=== PATIENT | male | born 1980 | race Caucasian/White ===

== ENCOUNTER 2018-05-27 08:39 | Emergency (ER) | payer OTHER ==
[2018-05-27] MEDS ORDERED: ALBUTEROL NEB 2.5 MG/3 ML INH STA (08:58)
--- NOTE | 2018-05-27 09:01 | ED Physician Documentation ---
PD HPI URI - Stated complaint Stated Complaint: CONGESTION/COUGH - Chief complaint Chief Complaint: Resp - History obtained from History obtained from: Patient, Family - History of Present Illness Timing - onset: How many weeks ago (3-4) Timing duration: Weeks (3-4) Timing details: Gradual onset Pain level max: 7 Pain level now: 5 Associated symptoms: Fever, Chills, Nasal congestion, Rhinorrhea, Dry cough, Dyspnea (wheezing) Contributing factors: Sick contact Improves by: MDI/nebulizer (used an inhaler last night) Worsened by: Activity Recently seen: Not recently seen - Additional information Additional information: type 1 diabetic, PCP is at Review of Systems Ten Systems: 10 systems reviewed and negative Constitutional: reports: Fever, Chills GI: denies: Vomiting, Diarrhea Skin: denies: Rash Musculoskeletal: denies: Neck pain, Back pain Neurologic: denies: Headache PD PAST MEDICAL HISTORY - Past Medical History Past Medical History: Yes Endocrine/Autoimmune: Type 1 diabetes - Present Medications Home Medications: Ambulatory Orders Medication Instructions Recorded Confirmed Albuterol Sulf [Ventolin Hfa 1 - 2 puffs INH Q4HR PRN #1 inhaler 05/27/18 Inhaler] Benzonatate [Tessalon Perle] 100 - 200 mg PO TID PRN #30 capsule 05/27/18 Doxycycline Hyclate 100 mg PO BID #20 capsule 05/27/18 Insulin Glargine [Lantus Solostar] 0 unit 05/27/18 05/27/18 Insulin Lispro [Humalog] 10 unit SUBQ ONCE 05/27/18 05/27/18 - Allergies Allergies/Adverse Reactions: Allergies Allergy/AdvReac Type Severity Reaction Status Date / Time Penicillins Allergy Anaphylaxis Verified 05/27/18 08:45 - Social History Does the pt smoke?: Yes Smoking Status: Current every day smoker Does the pt drink ETOH?: No Substance Use and Type: Marijuana PD ED PE NORMAL - Vitals Vital signs reviewed: Yes - General General: Alert and oriented X 3, No acute distress - HEENT HEENT: PERRL, Ears normal, Moist mucous membranes, Pharynx benign - Neck Neck: Supple, no meningeal sign - Cardiac Cardiac: RRR, Strong equal pulses - Respiratory Respiratory: No respiratory distress, Other (wheezing and rhonchi B) - Abdomen Abdomen: Soft, Non tender, Non distended - Derm Derm: Warm and dry, No rash - Extremities Extremities: No edema - Neuro Neuro: Alert and oriented X 3 - Psych Psych: Normal mood, Normal affect Results - Vitals Vitals: Vital Signs - 24 hr 05/27/18 05/27/18 05/27/18 08:44 09:06 10:00 Temperature 38.7 C H Heart Rate 100 94 115 H Respiratory 20 18 16 Rate Blood Pressure 147/91 H 137/95 H O2 Saturation 97 97 Oxygen O2 Source Room air - Rads (name of study) cxr Radiology: Prelim report reviewed, EMP read contemporaneously, See rad report (Left lingular patchy infiltrate or atelectasis ) PD MEDICAL DECISION MAKING - ED course Complexity details: reviewed results, re-evaluated patient, considered differential, d/w patient, d/w family ED course: 37-year-old male with what appears to be pneumonia. He is well-appearing, nontoxic. No respiratory distress. Also feels better after breathing treatment. Will place on antibiotics and an albuterol inhaler for home. Patient counseled regarding signs and symptoms for which I believe and urgent re- evaluation would be necessary. Patient with good understanding of and agreement to plan and is comfortable going home at this time This document was made in part using voice recognition software. While efforts are made to proofread this document, sound alike and grammatical errors may occur. Patient states that his blood sugars have been running 150-200 at home and was checked just prior to arrival Departure - Departure Disposition: 01 Home, Self Care Clinical Impression: Pneumonia Qualifiers: Pneumonia type: due to unspecified organism Laterality: left Lung location: unspecified part of lung Qualified Code(s): J18.9 - Pneumonia, unspecified organism Condition: Good Instructions: ED Pneumonia Adult Follow-Up: your,doctor in 1 week [Other] Prescriptions: Albuterol Sulf [Ventolin Hfa Inhaler] 1 - 2 puffs INH Q4HR PRN #1 inhaler PRN Reason: Shortness Of Air/Wheezing Benzonatate [Tessalon Perle] 100 - 200 mg PO TID PRN #30 capsule PRN Reason: Cough Doxycycline Hyclate 100 mg PO BID #20 capsule Comments: Use the antibiotics until gone. Use the inhaler as needed. Return if you worsen. This should improve with antibiotics. Discharge Date/Time: 05/27/18 10:01
--- NOTE | 2018-05-27 09:42 | XRAY Report ---
Reason: cough, fever Procedure Date: 05/27/2018 Accession Number: [id number] / [id number] Procedure: XR - Chest 2 View X-Ray CPT Code: 62572 FULL RESULT: EXAM: CHEST RADIOGRAPHY EXAM DATE: 05/27/2018 09:32 AM. CLINICAL HISTORY: Cough, fever. COMPARISON: None. TECHNIQUE: 2 views. FINDINGS: Lungs/Pleura: Patchy area of infiltrate or atelectasis in the lingula. No pleural effusion. No pneumothorax. Normal volumes. Mediastinum: Heart and mediastinal contours are unremarkable. Other: None. IMPRESSION: Left lingular patchy infiltrate or atelectasis RADIA
[2018-05-27 10:01] VITALS: BP 137/95
== END 2018-05-27 10:01 | disposition home or self-care (01) ==
LOC: ED 08:39
DX: J18.9 Pneumonia, unspecified organism (principal); E11.9 Type 2 diabetes mellitus without complications; F17.200 Nicotine dependence, unspecified, uncomplicated
CPT/HCPCS: 71046; 94640; 94664; 99283; 99284

== ENCOUNTER 2020-12-09 15:05 | Outpatient (CLI) | payer MEDICAID | END 2020-12-09 15:06 | disposition home or self-care (01) | LOC: COV 15:05 | PROVIDERS: ATTEND Family Medicine | DX: U07.1 COVID-19 (principal) ==

== ENCOUNTER 2023-03-30 09:36 | Emergency (ER) | payer MEDICAID ==
[2023-03-30 09:50] VITALS: BP 151/84; O2SAT 100
--- NOTE | 2023-03-30 10:05 | XRAY Report ---
PROCEDURE: Chest 1V INDICATIONS: cough with shortness of breath TECHNIQUE: One view of the chest was acquired. COMPARISON: 319 FINDINGS: Surgical changes and devices: None. Lungs and pleura: No pleural effusions or pneumothorax. Lungs are clear. Mediastinum: Mediastinal contours appear normal. Heart size is normal. Bones and chest wall: No suspicious bony lesions. Overlying soft tissues appear unremarkable. IMPRESSION: Single view chest study within normal limits, without focal infiltrates. Reviewed by: Raji Patricio MD on 03/30/2023 9:03 AM [facility] Approved by: Raji Patricio MD on 03/30/2023 9:03 AM [facility] Station ID: [id number]
[2023-03-30 10:55] LABS: B. PARAPERTUSSIS- RESP PCR PAN NOT DETECTED; B. PERTUSSIS- RESP PCR PANEL NOT DETECTED; C. PNEUMONIAE- RESP PCR PANEL NOT DETECTED; CORONAVIRUS 229E-RESP PCR NOT DETECTED; CORONAVIRUS HKU1-RESP PCR NOT DETECTED; CORONAVIRUS NL63-RESP PCR NOT DETECTED; CORONAVIRUS OC43-RESP PCR NOT DETECTED; HUMAN METAPNEUMOVIRUS NOT DETECTED; INFLUENZA A- RESP PCR PANEL NOT DETECTED; INFLUENZA B - RESP PCR PANEL NOT DETECTED; M. PNEUMONIAE- RESP PCR PANEL NOT DETECTED; PARAINFLUENZA VIRUS 1 NOT DETECTED; PARAINFLUENZA VIRUS 2 NOT DETECTED; PARAINFLUENZA VIRUS 3 NOT DETECTED; PARAINFLUENZA VIRUS 4 NOT DETECTED; RHINOVIRUS/ENTEROVIRUS NOT DETECTED; RSV- RESP PCR PANEL DETECTED; SARS-CoV-2 -RESP PCR PANEL NOT DETECTED
--- NOTE | 2023-03-30 13:55 | ED Physician Documentation ---
PD HPI URI - Stated complaint Stated Complaint: SOA,WEAKNESS,N/V - Chief complaint Chief Complaint: Resp - History obtained from History obtained from: Patient - History of Present Illness Timing - onset: How many weeks ago (2) Timing details: Abrupt onset, Still present (was improving after a week, with still coughing, but now worse again 2-3 days.) Associated symptoms: Chills, Productive cough, Dyspnea, Other (nausea) Similar symptoms before: Has not had sx before Review of Systems Constitutional: reports: Myalgias. denies: Fever Nose: reports: Congestion Throat: denies: Sore throat Cardiac: denies: Chest pain / pressure, Palpitations, Pedal edema Respiratory: reports: Dyspnea, Cough, Wheezing GI: reports: Nausea. denies: Vomiting, Diarrhea PD PAST MEDICAL HISTORY - Past Medical History Past Medical History: Yes Endocrine/Autoimmune: Type 1 diabetes - Past Surgical History Past Surgical History: No - Present Medications Home Medications: Ambulatory Orders Medication Instructions Recorded Confirmed Albuterol Sulf [Ventolin Hfa 1 - 2 puffs INH Q4HR PRN #1 inhaler 05/27/18 Inhaler] Benzonatate [Tessalon Perle] 100 - 200 mg PO TID PRN #30 capsule 05/27/18 Doxycycline Hyclate 100 mg PO BID #20 capsule 05/27/18 Insulin Glargine [Lantus Solostar] 0 unit 05/27/18 05/27/18 Insulin Lispro [Humalog] 10 unit SUBQ ONCE 05/27/18 05/27/18 Albuterol Sulf [Ventolin Hfa 1 - 2 puffs INH Q4HR PRN #1 each 03/30/23 Inhaler] Doxycycline Hyclate 100 mg PO BID 7 Days #14 cap 03/30/23 Ondansetron Odt [Zofran] 4 mg TL Q6H PRN #10 tablet 03/30/23 dexAMETHasone [Decadron] 4 mg PO DAILY #5 tablet 03/30/23 - Allergies Allergies/Adverse Reactions: Allergies Allergy/AdvReac Type Severity Reaction Status Date / Time Penicillins Allergy Anaphylaxis Verified 03/30/23 09:46 - Social History Does the pt smoke?: Yes Smoking Status: Current every day smoker Does the pt drink ETOH?: No Does the pt have substance abuse?: Yes Substance Use and Type: Marijuana - Immunizations Immunizations are current?: Yes PD ED PE NORMAL - Vitals Vital signs reviewed: Yes - General General: Alert and oriented X 3, Well developed/nourished - HEENT HEENT: Ears normal, Pharynx benign - Neck Neck: Supple, no meningeal sign, No adenopathy - Cardiac Cardiac: No murmur. No: RRR (tachycardic in triage, improves. Sats okay. regular rhythm.) - Respiratory Respiratory: No respiratory distress. No: Clear bilaterally (congested sounds hilar with coughing and diffuse wheezing on expiration. ) - Extremities Extremities: No edema, No calf tenderness / cord Results - Vitals Vitals: Oxygen O2 Source Room air - Labs Labs: Laboratory Tests 03/30/23 09:51 Nasal Adenovirus (PCR) NOT DETECTED Nasal B. parapertussis DNA (PCR) NOT DETECTED Nasal Coronavir 229E PCR NOT DETECTED Nasal Coronavir HKU1 PCR NOT DETECTED Nasal Coronavir NL63 PCR NOT DETECTED Nasal Coronavir OC43 PCR NOT DETECTED Nasal Enterovir/Rhinovir PCR NOT DETECTED Nasal Influenza B PCR NOT DETECTED Nasal Influenza A PCR NOT DETECTED Nasal Parainfluen 1 PCR NOT DETECTED Nasal Parainfluen 2 PCR NOT DETECTED Nasal Parainfluen 3 PCR NOT DETECTED Nasal Parainfluen 4 PCR NOT DETECTED Nasal RSV (PCR) DETECTED A Nasal B.pertussis DNA PCR NOT DETECTED Nasal C.pneumoniae (PCR) NOT DETECTED [place] Human Metapneumo PCR NOT DETECTED Nasal M.pneumoniae (PCR) NOT DETECTED Nasal SARS-CoV-2 (PCR) NOT DETECTED - Rads (name of study) hest xray Relevant Findings:: Prelim report reviewed, EMP independent interpretation of test (no infiltrates) PD Medical Decision Making - ED course Complexity details: reviewed results (positive for RSV but has had phasic symptoms with URI and cough for 2 weeks and now increased cough/ dyspnea/wheezing. COuld be RSV is new, but could also be secondary bronchtiits atop RSV. As such, inhaler steroids abx may have utility.), considered differential (has had cough and URI symptoms for 2 weeks with increased symptoms and dyspnea the past 2-3 days. ), d/w patient Departure - Departure Disposition: 01 Home, Self Care Clinical Impression: RSV bronchiolitis, Bronchitis, acute Condition: Stable Record reviewed to determine appropriate education?: Yes Prescriptions: Albuterol Sulf [Ventolin Hfa Inhaler] 1 - 2 puffs INH Q4HR PRN #1 each PRN Reason: Shortness Of Air/Wheezing dexAMETHasone [Decadron] 4 mg PO DAILY #5 tablet Doxycycline Hyclate 100 mg PO BID 7 Days #14 cap Ondansetron Odt [Zofran] 4 mg TL Q6H PRN #10 tablet PRN Reason: Nausea / Vomiting Comments: Your chest x-ray is clear without any signs of pneumonia. However your symptoms do sound like some element of bronchitis. Your viral panel test is positive for RSV but unclear whether that is a new current infection or the 1 that is been bothering you for the couple of weeks. Given the duration and now worsening of your symptoms, consideration would be a secondary bacterial bronchitis on top of the initial viral. Will treat this with a combination of inhaler as well as a steroid anti-inflammatory and an antibiotic. In addition I wrote for some ondansetron to use for nausea. I sent your prescription to [facility] in [place]. We did give a first dose of some medicines here. I would anticipate improvement over the next several days and hopefully decreasing of your symptoms enough in the meantime with the above treatments. Return to the ER if needed. Forms: PCP List Discharge Date/Time: 03/30/23 15:14
[2023-03-30] MEDS ORDERED: dexAMETHasone 4 MG TABLET PO STA (14:13)
[2023-03-30] MEDS ORDERED: DOXYCYCLINE 100 MG TABLET PO STA (14:13)
[2023-03-30] MEDS ORDERED: ONDANSETRON ODT 4 MG TABLET TL STA (14:13)
[2023-03-30] MEDS ORDERED: ALBUTEROL 1 PUFF INH STA (14:13)
== END 2023-03-30 15:14 | disposition home or self-care (01) ==
LOC: ED 09:36
DX: J21.0 Acute bronchiolitis due to respiratory syncytial virus (principal); E10.9 Type 1 diabetes mellitus without complications; Z79.4 Long term (current) use of insulin; F17.200 Nicotine dependence, unspecified, uncomplicated; Z11.52 Encounter for screening for COVID-19
CPT/HCPCS: 71045; 87633; 94640; 99284; A9270; J8540; Q0162; 87635

== ENCOUNTER 2023-09-02 12:24 | Outpatient (CLI) | payer MEDICAID | END 2023-09-02 23:59 | disposition EMS.NT | LOC: EMS 12:24 | DX: R11.2 Nausea with vomiting, unspecified (principal); E10.65 Type 1 diabetes mellitus with hyperglycemia ==

== ENCOUNTER 2023-09-02 23:28 | Outpatient (CLI) | payer MEDICAID | END 2023-09-02 23:59 | disposition critical access hospital (66) | LOC: EMS 23:28 | DX: R11.2 Nausea with vomiting, unspecified (principal); E10.65 Type 1 diabetes mellitus with hyperglycemia | CPT/HCPCS: A0425; A0427; A0999 ==

== ENCOUNTER 2023-09-02 23:54 | Emergency (ER) | payer MEDICAID ==
--- NOTE | 2023-09-02 23:54 | ED Physician Documentation ---
PD HPI NVD - Stated complaint Stated Complaint: NAUSEA/VOMITING - History obtained from History obtained from: Patient - Additonal information Additional information: BIBA. HPI from patient. Patient complains of burning epigastric pain, nausea and vomiting, x 2 days. There was no inciting event. Symptoms are exacerbated with any p.o. intake, and he says he is no longer able to tolerate even liquids since earlier this evening due to exacerbation of the pain, nausea and vomiting. He says that the last 2 or 3 episodes of vomitus have some bright red blood in the vomitus although he did not notice any clots. Denies history of similar symptoms. He says he does not drink on a heavy nor regular basis. He notes that the epigastric pain has been increasingly radiating up midline of his chest with a distinct burning sensation. Patient is diabetic; EMS reports fingerstick blood sugar 321. Review of Systems Constitutional: denies: Fever, Chills, Sweats Cardiac: reports: Reviewed and negative Respiratory: reports: Reviewed and negative GI: reports: Abdominal Pain, Nausea, Vomiting, Hematemesis. denies: Abdominal Swelling, Constipation, Diarrhea, Bloody / black stool : denies: Dysuria, Frequency Musculoskeletal: denies: Back pain PD PAST MEDICAL HISTORY - Past Medical History Past Medical History: Yes Endocrine/Autoimmune: Type 1 diabetes GI: GERD - Present Medications Home Medications: Ambulatory Orders Medication Instructions Recorded Confirmed Albuterol Sulf [Ventolin Hfa 1 - 2 puffs INH Q4HR PRN #1 inhaler 05/27/18 Inhaler] Benzonatate [Tessalon Perle] 100 - 200 mg PO TID PRN #30 capsule 05/27/18 Doxycycline Hyclate 100 mg PO BID #20 capsule 05/27/18 Insulin Glargine [Lantus Solostar] 0 unit 05/27/18 05/27/18 Insulin Lispro [Humalog] 10 unit SUBQ ONCE 05/27/18 05/27/18 Albuterol Sulf [Ventolin Hfa 1 - 2 puffs INH Q4HR PRN #1 each 03/30/23 Inhaler] Doxycycline Hyclate 100 mg PO BID 7 Days #14 cap 03/30/23 Ondansetron Odt [Zofran] 4 mg TL Q6H PRN #10 tablet 03/30/23 dexAMETHasone [Decadron] 4 mg PO DAILY #5 tablet 03/30/23 Lidocaine Viscous 2% [Xylocaine 5 ml PO Q4H PRN #100 ml 09/03/23 Viscous 2%] Ondansetron Odt [Zofran Odt] 4 mg TL Q6H PRN #14 tablet 09/03/23 - Allergies Allergies/Adverse Reactions: Allergies Allergy/AdvReac Type Severity Reaction Status Date / Time Penicillins Allergy Anaphylaxis Verified 09/03/23 00:15 PD ED PE NORMAL - Vitals Vital signs reviewed: Yes - General General: Alert and oriented X 3, Well developed/nourished, Other (appears uncomfortable, mildly diaphoretic) - HEENT HEENT: Other (tacky/pasty mucous membranes) - Neck Neck: Supple, no meningeal sign - Cardiac Cardiac: RRR, No murmur - Respiratory Respiratory: No respiratory distress, Clear bilaterally - Abdomen Abdomen: Normal bowel sounds, Soft, Non tender, Non distended - Back Back: No CVA TTP - Derm Derm: Normal color, Warm and dry Results - Vitals Vitals: Vital Signs - 24 hr 09/02/23 09/03/23 09/03/23 23:59 02:05 05:00 Temperature 36.8 C Heart Rate 60 79 79 Respiratory 18 18 16 Rate Blood Pressure 116/77 134/74 H 108/62 O2 Saturation 100 94 96 09/03/23 05:45 Temperature Heart Rate 76 Respiratory 18 Rate Blood Pressure 118/66 O2 Saturation 97 Oxygen O2 Source Room air - Labs Labs: Laboratory Tests 09/03/23 09/03/23 09/03/23 00:13 00:13 00:24 WBC 12.4 H RBC 5.35 Hgb 15.8 Hct 46.0 MCV 86.0 MCH 29.5 MCHC 34.3 RDW 13.3 Plt Count 252 MPV 10.4 Neut # (Auto) 10.8 H Lymph # (Auto) 0.6 L [place] # (Auto) 1.0 Eos # (Auto) 0.0 Baso # (Auto) 0.0 Absolute Nucleated RBC 0.00 Nucleated RBC % 0.0 Sodium 136 Potassium 3.7 Chloride 91 L Carbon Dioxide 34 H Anion Gap 11.0 BUN 46 H Creatinine 1.4 H Estimated GFR (MDRD) 56 L Glucose 266 H Calcium 9.3 Total Bilirubin 0.6 AST 12 ALT 19 Alkaline Phosphatase 66 Total Protein 6.3 L Albumin 4.5 Globulin 1.8 L Albumin/Globulin Ratio 2.5 H Lipase < 10 L Urine Color YELLOW Urine Clarity CLEAR Urine pH 6.5 Ur Specific [place] 1.020 Urine Protein 100 H Urine Glucose (UA) >=1000 H Urine Ketones 40 H Urine Occult Blood TRACE-INTA Urine Nitrite NEGATIVE Urine Bilirubin SMALL H Urine Urobilinogen 0.2 (NORMAL) Ur Leukocyte Esterase NEGATIVE Urine RBC 0-5 Urine WBC 0-3 Ur Squamous Epith Cells RARE Squamous Urine Bacteria None Seen Urine Mucus Few Strands Ur Microscopic Review INDICATED Urine Culture Comments NOT INDICATED Serum Ketones NEGATIVE PD Medical Decision Making - ED course Complexity details: reviewed results, re-evaluated patient, considered differential, d/w patient ED course: Patient's prescription medications include atorvastatin: patient says he takes this not for high cholesterol but because his kidney function tests are abnormal. Patient is given a total of 2 L of normal saline IV during his ED stay along with 4 mg IV Zofran With repeat dose for a total of 8 mg IV Zofran during his ED stay. He is also given 40 mg IV Protonix. Later in his stay, when he was able to tolerate p.o., he was given 30 mL of Maalox along with 5 mL of 2% Xylocaine (viscous). On serial reevaluations, he reported increasing improvement and appeared to be in less distress each time, eventually on the final reevaluation prior to discharge, he is asleep, awakens easily to voice, and reports resolution of his symptoms. Mild leukocytosis on CBC (WBC 12.4). Blood sugar is 266. Elevated BUN (46) and creatinine (1.4) with GFR 56. Unfortunately, there are no previous results in [facility] for comparative purposes. The elevated BUN and creatinine are not to a concerning extent from emergency standpoint, and the fact the patient says he was prescribed atorvastatin for some type of kidney test abnormality with suggest that this might not be a new finding (whether tonight's tests approximate his baseline can be determined in the outpatient setting). Serum ketones negative. No concerning findings on urinalysis (glucosuria with mild ketonuria noted, but no white blood cells no red blood cells on microscopy). I performed a bedside ultrasound (manager student services is not available at this hour at [facility]), it appears to me that there are several small, mobile gallstones. I suspect this is an incidental finding, as he is indicating his pain is midline and left upper quadrant and, his description of distinct burning sensation all are more suggestive of gastritis with possible lower esophagitis rather than biliary colic. Nonetheless, I advised patient to seek follow-up with PCP as soon as can be arranged for reevaluation, possible further testing such as right upper quadrant ultrasound and possible upper endoscopy. I advised him to continue taking his daily omeprazole which she has at home, and I have tachoana m mcguire submitted prescriptions for viscous Xylocaine and ondansetron to his pharmacy of choice. Results d/w patient, return precautions reviewed Departure - Departure Disposition: Home, Self Care Clinical Impression: Vomiting Qualifiers: Vomiting type: unspecified Nausea presence: with nausea Qualified Code(s): R11.2 - Nausea with vomiting, unspecified Abdominal pain Qualifiers: Abdominal location: upper abdomen, unspecified Qualified Code(s): R10.10 - Upper abdominal pain, unspecified Condition: Good Instructions: ED Nausea Vomiting, ED Abdominal Pain Unkn Cause Male Prescriptions: Lidocaine Viscous 2% [Xylocaine Viscous 2%] 5 ml PO Q4H PRN #100 ml PRN Reason: Abdominal Pain Ondansetron Odt [Zofran Odt] 4 mg TL Q6H PRN #14 tablet PRN Reason: Nausea / Vomiting Comments: Your blood sugar was high on tonight's test (266). It is also worth noting that your kidney function tests are higher than they should be (BUN 46, creatinine 1.4). I do not have previous results in my system for comparative purposes. These kidney function test might be the result of dehydration, a chronic process, or combination of both. Is very important that you follow-up with your primary care provider for reevaluation of symptoms but also to compare these kidney function tests to your previous for the purposes of determining if these are unusual findings for you. Should also follow-up with her primary care provider to for reassessment of tonight symptoms. Further testing might be helpful such as an abdominal ultrasound or upper endoscopy. Continue taking your acid-blocking medication (omeprazole) daily. I am also providing you with prescriptions for an as-needed anti-nausea medication as well as an as-needed numbing agent for abdominal pain. Do not eat, drink, no take any other oral medication for at least 1 hour after using the oral numbing agent. Forms: PCP List Discharge Date/Time: 09/03/23 05:45
[2023-09-03 00:18] LABS: BASOPHILS % (AUTO) 0.1 %; EOSINOPHILS % (AUTO) 0.2 %; HGB - HEMOGLOBIN 15.8 g/dL (14.0-18.0); LYMPHOCYTES # (AUTO) 0.6 10^3/uL (1.5-3.5); LYMPHOCYTES % (AUTO) 4.7 %; MEAN CORPUSCULAR HEMOGLOBIN 29.5 pg (27.0-31.0); MEAN CORPUSCULAR HGB CONC 34.3 g/dL (32.0-36.0); MEAN PLATELET VOLUME 10.4 fL (7.4-11.4); MONOCYTES % (AUTO) 7.6 %; NEUTROPHILS # (AUTO) 10.8 10^3/uL (1.5-6.6); NEUTROPHILS % (AUTO) 87.2 %; PLT - PLATELET COUNT 252 10^3/uL (130-450); RED BLOOD COUNT 5.35 10^6/uL (4.70-6.10); RED CELL DISTRIBUTION WIDTH 13.3 % (12.0-15.0); WHITE BLOOD COUNT 12.4 x10^3/uL (4.8-10.8)
[2023-09-03 00:25] LABS: KETONES, SERUM (ACETEST) NEGATIVE (NEGATIVE)
[2023-09-03 00:34] LABS: BILIRUBIN,URINE SMALL (NEGATIVE); GLUCOSE, URINE (UA) >=1000 mg/dL (NEGATIVE); KETONES,URINE (UA) 40 mg/dL (NEGATIVE); LEUKOCYTE ESTERASE, URINE NEGATIVE (NEGATIVE); NITRITE,URINE NEGATIVE (NEGATIVE); OCCULT BLOOD,URINE TRACE-INTA (NEGATIVE); PH,URINE 6.5 PH (5.0-7.5); PROTEIN,URINE 100 mg/dL (NEGATIVE); UROBILINOGEN,URINE 0.2 (NORMAL) E.U./dL (NORMAL)
[2023-09-03 00:35] LABS: ALBUMIN 4.5 g/dL (3.2-5.5); ALBUMIN/GLOBULIN RATIO 2.5 (1.0-2.2); ALKALINE PHOSPHATASE 66 IU/L (42-121); ALT ALANINE AMINOTRANSFERASE 19 IU/L (10-60); AST ASPARTATE AMINOTRANSFERASE 12 IU/L (10-42); BILIRUBIN,TOTAL 0.6 mg/dL (0.2-1.0); BUN - BLOOD UREA NITROGEN 46 mg/dL (6-20); CALCIUM 9.3 mg/dL (8.5-10.3); CARBON DIOXIDE - CO2 34 mmol/L (21-32); CHLORIDE 91 mmol/L (101-111); CREATININE 1.4 mg/dL (0.6-1.3); GFR - MDRD 56 (>89); GLUCOSE 266 mg/dL (74-104); LIPASE < 10 U/L (11-82); POTASSIUM 3.7 mmol/L (3.5-4.5); SODIUM 136 mmol/L (135-145); TOTAL PROTEIN 6.3 g/dL (6.4-8.9)
[2023-09-03 00:35] LABS: CLARITY,URINE CLEAR (CLEAR)
[2023-09-03 00:45] LABS: BACTERIA,URINE None Seen /HPF (None Seen); MUCUS,URINE Few Strands; RBC,URINE 0-5 /HPF (0-5); SQUAMOUS EPITHELIAL CELL,UR RARE Squamous (<= Few); WBC,URINE 0-3 /HPF (0-3)
[2023-09-03] MEDS: ONDANSETRON 4 MG/2 ML VIAL IVP STA ×2 (02:00→03:22)
[2023-09-03] MEDS: SODIUM CHLORIDE 0.9% 1,000 ML IV STA ×2 (02:00→03:14)
[2023-09-03] MEDS: PANTOPRAZOLE 40 MG VIAL IVP STA (02:00)
[2023-09-03] MEDS: LIDOCAINE VISCOUS 2% 15 ML UDC MM STA (03:21)
[2023-09-03] MEDS: MAG HYDROX/AL HYDROX/SIMETH 30 ML UDC PO STA (03:21)
[2023-09-03 05:50] VITALS: BP 118/66; O2SAT 97
== END 2023-09-03 05:45 | disposition home or self-care (01) ==
LOC: EDUNIT# → ED 23:54
DX: R10.10 Upper abdominal pain, unspecified (principal); R11.2 Nausea with vomiting, unspecified; R93.3 Abnormal findings on diagnostic imaging of other parts of digestive tract; R94.4 Abnormal results of kidney function studies
CPT/HCPCS: 36415; 80053; 81001; 82009; 83690; 85025; 96361; 96374; 96376; 99284; A9270; 81003; 87086